=== PATIENT | male | born 1950 | race Caucasian/White ===

== ENCOUNTER 2017-06-13 01:45 | Emergency (ER) | payer BC ==
[~2017-06-13] VITALS: Ht 170.2 cm; Wt 86.2 kg
--- NOTE | 2017-06-13 02:01 | NUR ---
PT FROM HOME AWOKE 12MIDNIGHT WITH STABBING RT CP THRU TO BACK WORSE ON DEEP INSPIRATION RATED 7/10 PAIN
--- NOTE | 2017-06-13 02:10 | NUR ---
IV STARTED BY CHRIS ANGELES AND NEDS GIVEN ORDERED
[2017-06-13] MEDS ORDERED: ASPIRIN 81 MG TAB.CHEW PO ONE (02:15)
[2017-06-13] MEDS ORDERED: ONDANSETRON 4 MG/2 ML VIAL ONE (02:36)
[2017-06-13] MEDS ORDERED: MORPHINE SULFATE 10 MG/1 ML DISP.SYRIN ONE (02:38)
[2017-06-13 02:39] LABS: CREATININE 1.1 mg/dL (0.6-1.3); POTASSIUM 3.8 mmol/L (3.5-5.1)
[2017-06-13] MEDS ORDERED: ASPIRIN 81 MG TAB.CHEW ONE (02:39)
[2017-06-13 02:45] LABS: BILIRUBIN,DIRECT 0.1 mg/dL (0.0-0.2); BILIRUBIN,TOTAL 0.5 mg/dL (0.2-1.0); TOTAL PROTEIN, SERUM 6.2 g/dL (6.4-8.2)
[2017-06-13 02:53] LABS: BASOPHILS % (AUTO) 0.2 % (0.0-2.0); EOSINOPHILS # (AUTO) 0.1 K/uL (0.0-0.7); EOSINOPHILS % (AUTO) 1.4 % (0.0-7.0); HEMATOCRIT 39.5 % (40-50); HEMOGLOBIN 13.2 G/DL (14.0-18.0); LYMPHOCYTES # (AUTO) 1.7 K/UL (0.8-4.8); LYMPHOCYTES % (AUTO) 16.8 % (20.5-51.5); MEAN CORPUSCULAR HEMOGLOBIN 30.5 UUG (27.0-31.0); MEAN CORPUSCULAR HGB CONC 34 g/dL (32.0-37.0); MONOCYTES # (AUTO) 0.9 K/UL (0.1-1.30); NEUTROPHILS # (AUTO) 7.2 K/UL (1.8-8.9); NEUTROPHILS % (AUTO) 72.6 % (38.5-71.5); PLATELET COUNT (AUTO) 194 K/UL (150-450); RED BLOOD CELL COUNT(AUTO) 4.34 MIL/UL (4.7-6.1); WHITE BLOOD COUNT (AUTO) 9.9 K/UL (4.0-11.2)
[2017-06-13] MEDS ORDERED: ONDANSETRON 4 MG/2 ML VIAL IV ONE (03:00)
[2017-06-13] MEDS ORDERED: MORPHINE SULFATE 4 MG/1 ML DISP.SYRIN IV ONE (03:00)
--- NOTE | 2017-06-13 03:05 | NUR ---
PT STATES MEDS HELPED ; FEELS BETTER; NO CP NOW
--- NOTE | 2017-06-13 03:33 | NUR ---
DR HUNTER TO FER PT
[2017-06-13] MEDS ORDERED: AZITHROMYCIN 250 MG TABLET PO ONE (03:45)
--- NOTE | 2017-06-13 04:07 | NUR ---
RX AND AFTERCARE REVIEWED WITH PT
[2017-06-13 04:08] VITALS: BP 109/76
[2017-06-13] MEDS ORDERED: AZITHROMYCIN 250 MG TABLET ONE (04:20)
== END 2017-06-13 04:10 | disposition home or self-care (01) ==
LOC: ER 01:48
DX: J18.9 Pneumonia, unspecified organism (principal); I10 Essential (primary) hypertension; I70.0 Atherosclerosis of aorta; E78.00 Pure hypercholesterolemia, unspecified
CPT/HCPCS: 36415; 71010; 80048; 80076; 84484; 85025; 85379; 85730; 93005 ×2; 96374; 96375; 99285; A4663; J2270; J2405; Q0144; 70030-TC

== ENCOUNTER 2021-06-14 22:40 | Emergency (ER) | payer SELFPAY | END 2021-06-14 23:04 | disposition left against medical advice (07) | LOC: ER 22:42 | DX: Z53.21 Procedure and treatment not carried out due to patient leaving prior to being seen by health care provider (principal) ==